=== PATIENT | male | born 1980 | race Caucasian/White ===

== ENCOUNTER 2024-12-27 18:21 | Emergency (ER) | payer SELFPAY ==
[2024-12-27] VITALS (8 sets, daily range): BP systolic 166–228; BP diastolic 100–123; PULSE 54–64; RESP 15–20; TEMP 36.4; O2SAT 94–98; BMI 33.7
--- NOTE | 2024-12-27 18:35 | XRR_ITS ---
PROCEDURE INFORMATION: Exam: XR Chest Exam date and time: 12/27/2024 6:38 PM Age: 44 years old Clinical indication: Other: HTN; Additional info: Hypertension TECHNIQUE: Imaging protocol: Radiologic exam of the chest. Views: 1 view. COMPARISON: No relevant prior studies available. FINDINGS: Lungs: Unremarkable. No consolidation. Pleural spaces: Unremarkable. No pleural effusion. No pneumothorax. Heart/Mediastinum: Unremarkable. No cardiomegaly. Bones/joints: Unremarkable. XR/XR chest 1V portable [id number] IMPRESSION: No acute findings.
[2024-12-27 19:07] LABS: Basophils % 0.2 %; Eosinophils % 0.1 %; Hematocrit 47.9 % (37-53); Lymphocytes # 1.4 10^3/uL (0.8-4.8); Lymphocytes % 9.7 %; Mean Corpuscular HGB Conc 35.3 g/dL (30-55); Mean Corpuscular Volume 85.1 fl (82-101); Mean Platelet Volume 10.7 fL (7.4-10.4); Monocytes # 0.6 10^3/uL (0.2-0.9); Monocytes % 3.9 %; Neutrophils % 85.6 %; Nucleated Red Blood Cells % 0 %; Platelet Count 152 10^3/cmm (157-399); Red Blood Count 5.63 10^6/uL (3.85-5.65); Red Cell Distribution Width 12.5 % (12.1-15.1); White Blood Count 14.26 10^3/uL (3.29-11.43)
--- NOTE | 2024-12-27 19:10 | ECG_ITS ---
[facility] Test Date: 2024-12-27 Pat Name: Santana Foy Department: Room: Gender: Male [employer]: : 1980 Requested By: Carla Jiménez Order Number: [id number] Reading MD: Measurements Intervals [place] Rate: 55 P: 40 ND: 148 QRS: 41 QRSD: 105 T: 14 QT: 386 QTc: 370 Interpretive Statements SINUS [email or web address]
[2024-12-27 19:20] LABS: Troponin(5th) Baseline 10 ng/L (0-15)
[2024-12-27 19:22] LABS: Alanine Aminotransferase 154 U/L (0-41); Albumin Level 4.9 g/dL (3.5-5.2); Alkaline Phosphatase 83 U/L (40-130); Anion Gap 16.9 (5-19); Aspartate Amino Transferase 88 U/L (0-40); Blood Urea Nitrogen 8 mg/dL (6-20); Calcium 9.2 mg/dL (8.5-10.5); Carbon Dioxide 24 mmol/L (22-29); Chloride 104 mmol/L (98-107); Creatinine Clr Calc Pharmacy 167.8774; Globulin 2.8 g/dL (1.3-4.6); Glomerular Filtration Rate 105.5 mL/min (90-130); Glucose 142 mg/dL (65-115); Lipase 18 U/L (13-60); Osmolality Calculated 293 mOsm/kg (285-295); Potassium 3.9 mmol/L (3.5-5.1); Sodium 141 mmol/L (136-145); Total Bilirubin 1.6 mg/dL (0.15-1.2); Total Protein 7.7 g/dL (6.6-8.7)
[2024-12-27] MEDS: ondansetron 2 mg/ML SDV 2 mL 8 MG IVP (19:28)
[2024-12-27 19:29] LABS: Lactic Sepsis W/Reflex 2.3 mmol/L (0.5-2.2)
[2024-12-27] MEDS: hyDRALAzine 20 mg/mL INJ 1 mL IVP (19:32)
--- NOTE | 2024-12-27 19:57 | CTR_ITS ---
PROCEDURE INFORMATION: Exam: CT Head Without Contrast Exam date and time: 12/27/2024 8:09 PM Age: 44 years old Clinical indication: Pain; Headache; Migraine; Aura effect not specified; Additional info: Headache, hypertension TECHNIQUE: Imaging protocol: Computed tomography of the head without contrast. Radiation optimization: All CT scans at this facility use at least one of these dose optimization techniques: automated exposure control; mA and/or kV adjustment per patient size (includes targeted exams where dose is matched to clinical indication); or iterative reconstruction. COMPARISON: No relevant prior studies available. RADIATION DOSE METRICS: Total DLP (mGy-cm): 1248.08 FINDINGS: Brain: Normal. No hemorrhage. Unremarkable white matter. No mass effect. Cerebral ventricles: No ventriculomegaly. Paranasal sinuses: Visualized sinuses are unremarkable. No fluid levels. Mastoid air cells: Visualized mastoid air cells are well aerated. Bones: Unremarkable. No acute fracture. Soft tissues: Unremarkable. CT/CT head wo con* [id number] IMPRESSION: No acute intracranial abnormality.
--- NOTE | 2024-12-27 19:57 | W.ED.NAVMDI ---
HPI - Nausea/Vomiting/Diarrhea General: Chief complaint: Nausea/Vomiting/Diarrhea Stated complaint: N/V Time Seen by Provider: 12/27/24 18:28 History of Present Illness: Patient presents emergency room with nausea vomiting and headache. He is also had some diffuse abdominal pain. He says he has a history of hypertension but quit taking his meds about 8 months ago. Pain is worse in his epigastrium. He has a headache. He has had some nausea and vomiting. EMS had given him some fentanyl and Zofran. Related Data Previous Rx's ?Medication ?Instructions ?Recorded lisinopril 20 1 tab PO DAILY #30 tabs 12/27/24 mg-hydrochlorothiazide 25 mg tablet Allergies Allergy/AdvReac Type Severity Reaction Status Date / Time No Known Allergies Allergy Verified 12/27/24 18:36 Review of Systems Narrative: Constitutional symptoms: Negative except as documented in HPI. Skin symptoms: Negative except as documented in HPI. Eye symptoms: Negative except as documented in HPI. ENMT symptoms: Negative except as documented in HPI. Respiratory symptoms: Negative except as documented in HPI. Cardiovascular symptoms: Negative except as documented in HPI. Gastrointestinal symptoms: Negative except as documented in HPI. Genitourinary symptoms: Negative except as documented in HPI. Musculoskeletal symptoms: Negative except as documented in HPI. Neurologic symptoms: Negative except as documented in HPI. Psychiatric symptoms: Negative except as documented in HPI. Endocrine symptoms: Negative except as documented in HPI. Physical Exam Narrative: EXAM NARRATIVE: General: Alert, no acute distress. Skin: Warm, dry. Head: Normocephalic, atraumatic. Neck: Supple, trachea midline. Eye: Extraocular movements are intact. Ears, nose, mouth and throat: mucosa moist. Cardiovascular: Regular, Normal peripheral perfusion. Respiratory: Lungs are clear to auscultation, respirations are non-labored, breath sounds are equal, Symmetrical chest wall expansion. Gastrointestinal: Soft, epigastric pain, Non distended Musculoskeletal: Normal ROM, no deformity. Neurological: Alert and oriented, No focal neurological deficit observed. Psychiatric: Cooperative, appropriate mood & affect. Course Vital Signs: Vital signs: Vital Signs Temperature 97.5 F L 12/27/24 18:34 Pulse Rate 63 12/27/24 21:44 Respiratory Rate 20 H 12/27/24 21:00 Blood Pressure 166/108 12/27/24 21:44 Pulse Oximetry 95 12/27/24 21:44 Oxygen Delivery Me thod Room Air 12/27/24 18:34 MDM - Nausea/Vomiting/Diarrhea Medical Decision Making EKG: Time 1909. Rate 55. Sinus bradycardia, No ST-T changes, no ectopy, normal CO & QRS intervals, This was reviewed and interpreted by myself the ER physician at 191. Chest x-ray: No acute process. No infiltrate. No pneumothorax. This was reviewed and interpreted by myself the emergency room physician. I also reviewed the radiology report. CT head: No acute intracranial process. no intracranial hemorrhage, no evidence of infarct. no evidence of acute fracture.This was reviewed and interpreted by myself the ER physician. CT of the abdomen pelvis: Nothing acute. This was reviewed and interpreted by myself the emergency room physician. I also reviewed the radiology report. Lab Review: Laboratory results were reviewed and interpreted by myself the emergency room physician. Mild leukocytosis. No anemia. No renal failure. Mild elevation in his liver enzymes. Discussed that he needs to follow-up with his primary for this. I reviewed the patient's medical record. Reexamination: Blood pressure has improved some with hydralazine. Will start him back on his lisinopril hydrochlorothiazide. He understands he needs to follow with PCP as soon as possible. Assessment and plan: Abdominal pain Hypertension ?IV hydralazine in the emergency room. - Discharged home - Discussed plan with patient. Answered any questions. - Evaluation and treatment of this problem were appropriate in the emergency setting. Lab Data 12/27/24 18:54 12/27/24 18:54 Radiology Impressions Chest X-Ray 12/27/24 18:35 IMPRESSION: No acute findings. Head CT 12/27/24 19:57 IMPRESSION: No acute intracranial abnormality. Abdomen/Pelvis CT 12/27/24 19:58 IMPRESSION: No acute findings. Laboratory Results WBC 14.26 10^3/uL (3.29-11.43) H 12/27/24 18:54 RBC 5.63 10^6/uL (3.85-5.65) 12/27/24 18:54 Hgb 16.90 g/dL (11.27-16.99) 12/27/24 18:54 Hct 47.9 % (37-53) 12/27/24 18:54 MCV 85.1 fl (82-101) 12/27/24 18:54 MCH 30.0 pg (27-33) 12/27/24 18:54 MCHC 35.3 g/dL (30-55) 12/27/24 18:54 RDW 12.5 % (12.1-15.1) 12/27/24 18:54 Plt Count 152 10^3/cmm (157-399) L 12/27/24 18:54 MPV 10.7 fL (7.4-10.4) H 12/27/24 18:54 Neut % (Auto) 85.6 % 12/27/24 18:54 Lymph % (Auto) 9.7 % 12/27/24 18:54 [place] % (Auto) 3.9 % 12/27/24 18:54 Eos % (Auto) 0.1 % 12/27/24 18:54 Baso % (Auto) 0.2 % 12/27/24 18:54 Neut # (Auto) 12.20 10^3/uL (1.8-7.7) H 12/27/24 18:54 Lymph # (Auto) 1.4 10^3/uL (0.8-4.8) 12/27/24 18:54 [place] # (Auto) 0.6 10^3/uL (0.2-0.9) 12/27/24 18:54 Eos # (Auto) 0.0 10^3/uL (0.0-0.8) 12/27/24 18:54 Baso # (Auto) 0.0 10^3/uL (0.0-0.1) 12/27/24 18:54 Nucleated RBC % (auto) 0 % 12/27/24 18:54 Nucleated RBCs # 0.0 /100WBC 12/27/24 18:54 Sodium 141 mmol/L (136-145) 12/27/24 18:54 Potassium 3.9 mmol/L (3.5-5.1) 12/27/24 18:54 Chloride 104 mmol/L (98-107) 12/27/24 18:54 Carbon Dioxide 24 mmol/L (22-29) 12/27/24 18:54 Anion Gap 16.9 (5-19) 12/27/24 18:54 BUN 8 mg/dL (6-20) 12/27/24 18:54 Creatinine 0.8 mg/dL (0.7-1.2) 12/27/24 18:54 GFR Calculation 105.5 mL/min (90-130) 12/27/24 18:54 Glucose 142 mg/dL (65-115) H 12/27/24 18:54 Calculated Osmolality 293 mOsm/kg (285-295) 12/27/24 18:54 Lactic Acid 2.3 mmol/L (0.5-2.2) H 12/27/24 18:54 Lactic Acid (Sepsis) 2.7 mmol/L (0.5-2.2) H 12/27/24 20:53 Calcium 9.2 mg/dL (8.5-10.5) 12/27/24 18:54 Total Bilirubin 1.6 mg/dL (0.15-1.2) H 12/27/24 18:54 AST 88 U/L (0-40) H 12/27/24 18:54 ALT 154 U/L (0-41) H 12/27/24 18:54 Alkaline Phosphatase 83 U/L (40-130) 12/27/24 18:54 Troponin T Baseline 10 ng/L (0-15) 12/27/24 18:54 Troponin T 120 Minute 11.12 ng/L (0-15) 12/27/24 20:31 Delta Troponin T 1.12 ABS# (0-10) 12/27/24 20:31 Total Protein 7.7 g/dL (6.6-8.7) 12/27/24 18:54 Albumin 4.9 g/dL (3.5-5.2) 12/27/24 18:54 Globulin 2.8 g/dL (1.3-4.6) 12/27/24 18:54 Lipase 18 U/L (13-60) 12/27/24 18:54 Urine Color Yellow (Yellow) 12/27/24 19:44 Urine Appearance Clear (CLEAR) 12/27/24 19:44 Urine pH 8 (5-7) A 12/27/24 19:44 Ur Specific [place] 1.015 (1.005-1.030) 12/27/24 19:44 Urine Protein Neg (Negative) 12/27/24 19:44 Urine Glucose (UA) Norm (Normal) 12/27/24 19:44 Urine Ketones Negative (Negative) 12/27/24 19:44 Urine Blood Neg (Negative) 12/27/24 19:44 Urine Nitrate Negative (Negative) 12/27/24 19:44 Urine Bilirubin Neg (Negative) 12/27/24 19:44 Urine Urobilinogen Norm mg/dL (Negative) 12/27/24 19:44 Ur Leukocyte Esterase Negative (Negative) 12/27/24 19:44 Urine RBC 0-2 /hpf (0-2) 12/27/24 19:44 Urine WBC 0-5 /hpf (0-5) 12/27/24 19:44 Ur Squamous Epith Cells 0-5 /hpf (0-5) 12/27/24 19:44 Amorphous Sediment Not Reportable 12/27/24 19:44 Urine Bacteria None seen /hpf (NONE) 12/27/24 19:44 Hyaline Casts 0-4 /lpf H 12/27/24 19:44 Influenza A (PCR) Negative (Negative) 12/27/24 19:44 Influenza Type B (PCR) Negative (Negative) 12/27/24 19:44 RSV (PCR) Negative (Negative) 12/27/24 19:44 SARS-CoV-2 (PCR) Negative (Negative) 12/27/24 19:44 All radiology interpretation(s) finalized by discharge Discharge Plan Discharge Patient Disposition: Home Clinical Impression: Accelerated hypertension, Headache, Abdominal pain Condition: Stable Prescriptions: New lisinopril-hydrochlorothiazide 20-25 mg tablet 1 tab PO DAILY Qty: 30 2RF Discharge Orders: Discharge ED (Routine); Ordered 12/27/24 Ordered By: Carla Mcknight Patient Instructions: Abdominal Pain (ED), Hypertension (ED), Opioid Safety, Pain Management Activity Restrictions/Additional Instructions: Thank you for choosing [facility] for your healthcare needs today. Please realize this is an emergency room and that we are providing you with a medical screening exam and this may not be complete and all inclusive of all the testing and or work up that you may need to determine your ailment or severity of your illness. You have been screened and evaluated and felt safe for discharge. Health conditions do change or evolve sometimes and as such it is important that you follow up with your Primary Doctor to be re checked, 3-5 days is a general good time frame for follow up. You are always welcome to return to the ED for re assessment if your symptoms are worsening or you have new concerns Print Language: South Korean Coding Level of Care Code ED Demand Manager for Kylee York
--- NOTE | 2024-12-27 19:58 | CTR_ITS ---
PROCEDURE INFORMATION: Exam: CT Abdomen And Pelvis With Contrast Exam date and time: 12/27/2024 8:14 PM Age: 44 years old Clinical indication: Abdominal pain; Generalized TECHNIQUE: Imaging protocol: Computed tomography of the abdomen and pelvis with contrast. Radiation optimization: All CT scans at this facility use at least one of these dose optimization techniques: automated exposure control; mA and/or kV adjustment per patient size (includes targeted exams where dose is matched to clinical indication); or iterative reconstruction. Contrast material: OMNIPAQUE 350; Contrast volume: 100 ml; Contrast route: INTRAVENOUS (IV); COMPARISON: CR (CHEST, ) 12/27/2024 6:38 PM RADIATION DOSE METRICS: Total DLP (mGy-cm): 1144.78 FINDINGS: Lungs: Bilateral dependent pulmonary atelectasis is demonstrated within the lungs. Liver: Unremarkable. No mass. Gallbladder and biliary ducts: Unremarkable. No calcified stones. No ductal dilation. Pancreas: Unremarkable. Spleen: Unremarkable. No splenomegaly. Adrenal glands: Normal. No mass. Kidneys and ureters: Unremarkable. No hydronephrosis or calculi. Stomach and bowel: Unremarkable. No obstruction, ileus or definite inflammation. Appendix: The visualized appendix appears unremarkable. Intraperitoneal space: No free air. No significant fluid collection. Vasculature: Calcifications in the pelvis, most compatible with phleboliths. Lymph nodes: No enlarged lymph nodes. Urinary bladder: Unremarkable as visualized. Reproductive: Unremarkable as visualized. Bones/joints: Mild generalized bony degenerative changes. Bony structures appear otherwise unremarkable. Soft tissues: Unremarkable. Other findings: Limited study with motion artifact. CT/CT abdomen pelvis w con* [id number] IMPRESSION: No acute findings.
[2024-12-27 20:00] LABS: Bacteria Urine None Seen /hpf; Hyaline Casts Urine 0-4 /lpf; RBC Urine 0-2 /hpf (0-2); Squamous Epithelial Cell Urine 0-5 /hpf (0-5); WBC Urine 0-5 /hpf (0-5)
[2024-12-27 20:05] LABS: Bilirubin Urine Neg (Negative); Blood Urine Neg (Negative); Glucose Urine UA Norm (Normal); Ketones Urine Negative (Negative); Leukocyte Esterase Urine Negative (Negative); Nitrate Urine Negative (Negative); Protein Urine Neg (Negative); Specific Gravity, Urine 1.015 (1.005-1.030); Urine Appearance Clear (CLEAR); Urine Color Yellow (Yellow); Urobilinogen Urine Norm (Negative); pH Urine 8 (5-7)
[2024-12-27] MEDS: iohexol 350 mg/mL 500 mL Btl (per mL) IV (20:19)
[2024-12-27 20:30] LABS: Influenza A NEGATIVE (Negative); Influenza B NEGATIVE (Negative); Respiratory Syncytial Virus Ce NEGATIVE (Negative); SARS-CoV-2 PCR NEGATIVE (Negative)
[2024-12-27 20:48] LABS: Reflex Lactate Order REFLEX LACTIC ORDERD
[2024-12-27 21:12] LABS: Lactic Acid level (Lactate) 2.7 mmol/L (0.5-2.2)
[2024-12-27 21:13] LABS: Troponin 5 2HR 11.12 ng/L (0-15); Troponin 5 2HR Delta 1.12 ABS# (0-10)
== END 2024-12-27 21:46 | disposition home or self-care (01) ==
PROVIDERS: Emergency Provider Emergency Medicine
DX: I10 Essential (primary) hypertension (principal); R51.9 Headache, unspecified; R10.9 Unspecified abdominal pain; Z11.52 Encounter for screening for COVID-19
CPT/HCPCS: 36415; 70450; 71045; 74177; 80053; 81001; 83605; 83690; 84484; 85025; 87040; 87637; 93005; 96374; 96375; 99285; J0360; J2405